=== PATIENT | female | born 1980 | race Caucasian/White ===

== ENCOUNTER → 2016-12-20 | Outpatient (CLI) | payer OTHER ==
[2016-12-20 16:54] LABS: ANION GAP 9 MEQ/L (8-16); BLOOD UREA NITROGEN 9 MG/DL (7-18); CALCIUM LEVEL 10.3 MG/DL (8.5-10.1); CARBON DIOXIDE LEVEL 26 MEQ/L (21-32); CHLORIDE LEVEL 106 MEQ/L (98-107); CREATININE FOR GFR 0.54 MG/DL (0.55-1.02); GLOMERULAR FILTRATION RATE > 60.0 (>60); GLUCOSE, FASTING 81 MG/DL (70-105); POTASSIUM SERUM 4.2 MEQ/L (3.5-5.1); SODIUM LEVEL 141 MEQ/L (136-145)
[2016-12-20 17:01] LABS: MEAN CORPUSCULAR HEMOGLOBIN 31.8 pg (27.0-33.0); MEAN CORPUSCULAR HGB CONC 35.2 g/dl (32.0-36.5); MEAN CORPUSCULAR VOLUME 90.4 fl (80.0-96.0); RED CELL DISTRIBUTION WIDTH 11.9 % (11.5-14.5)
[2016-12-24 00:06] LABS: O+P EXAM Final report (.)
== END ==
LOC: M LAB 16:10
PROVIDERS: ATTEND Student in an Organized Health Care Education/Training Program
DX: R53.83 Other fatigue (principal); Z79.899 Other long term (current) drug therapy; E66.3 Overweight; R10.84 Generalized abdominal pain

== ENCOUNTER → 2017-05-04 | Outpatient (CLI) | payer OTHER ==
[2017-05-04 15:26] LABS: PTH INTACT 131.4 PG/ML (14.0-72.0); TOTAL 25(OH) VITAMIN D 16.1 NG/ML (30.0-100.0)
[2017-05-04 15:59] LABS: ALBUMIN 4.4 GM/DL (3.2-5.2); ALBUMIN/GLOBULIN RATIO 1.52 (1.00-1.93); ALKALINE PHOSPHATASE 59 U/L (45-117); ALT/SGPT 21 U/L (12-78); ANION GAP 6 MEQ/L (8-16); AST/SGOT 17 U/L (7-37); BILIRUBIN,TOTAL 0.3 MG/DL (0.2-1.0); BLOOD UREA NITROGEN 10 MG/DL (7-18); CALCIUM LEVEL 10.2 MG/DL (8.5-10.1); CARBON DIOXIDE LEVEL 27 MEQ/L (21-32); CHLORIDE LEVEL 105 MEQ/L (98-107); CREATININE FOR GFR 0.61 MG/DL (0.55-1.30); GLOMERULAR FILTRATION RATE > 60.0 (>60); GLUCOSE, FASTING 94 MG/DL (70-100); POTASSIUM SERUM 4.4 MEQ/L (3.5-5.1); SODIUM LEVEL 138 MEQ/L (136-145); TOTAL PROTEIN 7.3 GM/DL (6.4-8.2)
[2017-05-09 14:16] LABS: VITAMIN D 1,25 DIHYDROXY 53.3 pg/mL (19.9-79.3)
== END ==
LOC: M LAB 14:06
DX: E55.9 Vitamin D deficiency, unspecified (principal)
CPT/HCPCS: 80053

== ENCOUNTER → 2017-05-11 | Outpatient (CLI) | payer OTHER | LOC: M RAD 13:20 | DX: E21.3 Hyperparathyroidism, unspecified (principal) | CPT/HCPCS: 76775 ==

== ENCOUNTER → 2017-05-19 | Outpatient (CLI) | payer OTHER | LOC: M RAD 09:36 | DX: E21.3 Hyperparathyroidism, unspecified (principal) | CPT/HCPCS: 78070 ==

== ENCOUNTER 2018-02-15 06:54 | Day surgery (SDC) | payer OTHER ==
[2018-02-15 07:19] LABS: CONTROL LINE UCG INT CTR LINE PRESENT; URINE PREG TEST NEGATIVE (NEGATIVE)
[2018-02-15] MEDS: LR 1,000 ML IV (08:20)
[2018-02-15] MEDS ORDERED: SCOPOLAMINE 1MG TRANSDERMAL PATCH As Ordered (10:19)
[2018-02-15] MEDS: SCOPOLAMINE 1MG TRANSDERMAL PATCH TOP (10:20)
[2018-02-15] MEDS ORDERED: MIDAZOLAM INJ 2 MG/2 ML VIAL (J2250) As Ordered (11:09)
[2018-02-15] MEDS ORDERED: fentaNYL 100 MCG/2 ML INJECTION (J3010) As Ordered ×2 (11:09→12:37)
[2018-02-15] MEDS ORDERED: PROPOFOL 200 MG/20 ML VIAL As Ordered ×2 (11:09→11:19)
[2018-02-15] MEDS ORDERED: ROCURONIUM BROMIDE 50 MG/5 ML VIAL As Ordered (11:09)
[2018-02-15] MEDS ORDERED: LIDOCAINE 2% INJ 100 MG/5 ML SDV (FOR ANES.) As Ordered (11:09)
[2018-02-15] MEDS ORDERED: SUCCINYLCHOLINE 100 MG/5 ML SYRINGE (J0330) As Ordered (11:10)
[2018-02-15] MEDS: CEFUROXIME INJ 750 MG VIAL (J0697 PER 750MG) As Ordered (11:14)
[2018-02-15] MEDS ORDERED: REMIFENTANIL 1MG 3ML VIAL As Ordered (11:16)
[2018-02-15] MEDS ORDERED: ePHEDrine SULFATE 25 MG/5 ML(5MG/ML) SYRINGE As Ordered (11:30)
[2018-02-15 11:43] LABS: PTH INTACT 176.6 PG/ML (18.5-88.0)
[2018-02-15] MEDS ORDERED: ONDANSETRON 4MG/2ML VIAL (J2405) As Ordered (12:28)
[2018-02-15 12:38] LABS: IONIZED CALCIUM 4.8 MG/DL (4.5-5.3)
[2018-02-15 13:06] LABS: PTH INTACT 31.6 PG/ML (18.5-88.0)
[2018-02-15] MEDS: LIDOCAINE W/EPINEPHRINE 1% 20ML VIAL As Ordered (13:10)
[2018-02-15 13:16] LABS: PTH INTACT 35.5 PG/ML (18.5-88.0)
[2018-02-15] MEDS ORDERED: NORCO, ANEXSIA 5/325MG TABLET (HYDROcodone/ACETAMINOPHEN) As Ordered (13:44)
[2018-02-15] MEDS: NORCO, ANEXSIA 5/325MG TABLET (HYDROcodone/ACETAMINOPHEN) PO ×2 (13:45→14:20)
[2018-02-15] MEDS ORDERED: fentaNYL 100 MCG/2 ML INJECTION (J3010) IV (14:15)
[2018-02-15] MEDS ORDERED: ONDANSETRON 4MG/2ML VIAL (J2405) IV (14:15)
[2018-02-15] MEDS ORDERED: LR 1,000 ML IV ×2 (14:15)
[2018-02-15] MEDS: dexameTHASONE 4 MG/ML 1ML VIAL (J1100) IV (14:20)
== END 2018-02-15 17:05 | disposition home or self-care (01) ==
LOC: M SDC 06:54
DX: D35.1 Benign neoplasm of parathyroid gland (principal); E21.3 Hyperparathyroidism, unspecified; J45.909 Unspecified asthma, uncomplicated; T88.59XD Other complications of anesthesia, subsequent encounter; K21.9 Gastro-esophageal reflux disease without esophagitis; M54.9 Dorsalgia, unspecified; Z88.1 Allergy status to other antibiotic agents; Z88.5 Allergy status to narcotic agent; Z88.8 Allergy status to other drugs, medicaments and biological substances
CPT/HCPCS: 60500

== ENCOUNTER → 2018-02-27 | Outpatient (CLI) | payer OTHER ==
[2018-02-27 13:53] LABS: IONIZED CALCIUM 4.8 MG/DL (4.5-5.3)
[2018-02-27 14:28] LABS: PTH INTACT 72.1 PG/ML (18.5-88.0)
== END ==
LOC: M LAB 13:29
DX: E21.0 Primary hyperparathyroidism (principal)
CPT/HCPCS: 82330

== ENCOUNTER → 2018-05-08 | Outpatient (CLI) | payer OTHER ==
[~2018-05-08] MED LIST: PROAAER10
--- NOTE | 2018-05-09 15:35 | DEXA ---
AP SPINE L1 - L4 1.073 -1.0 -1.0 LT FEMUR TOTAL 0.851 -1.2 -1.0 LT NECK 0.882 -1.1 -0.7 RT FEMUR TOTAL 0.891 -0.9 -0.7 RT NECK 0.899 -1.0 -0.6 TOTAL BODY TOTAL OTHER COMMENTS: There is low bone density of the spine and hips. FOLLOW-UP: Recommendation for the next bone density exam: 2 years. DAPHNEY
== END ==
LOC: M WHC 11:41
PROVIDERS: ATTEND Hospitalist
DX: E21.0 Primary hyperparathyroidism (principal); M85.851 Other specified disorders of bone density and structure, right thigh; M85.852 Other specified disorders of bone density and structure, left thigh; M85.88 Other specified disorders of bone density and structure, other site

== ENCOUNTER → 2018-09-14 | Outpatient (CLI) | payer OTHER ==
[2018-09-14 11:08] LABS: IONIZED CALCIUM 4.9 MG/DL (4.5-5.3)
[2018-09-14 11:37] LABS: PTH INTACT 68.8 PG/ML (18.5-88.0)
== END ==
LOC: M LAB 10:27
PROVIDERS: ATTEND Physician Assistant Medical
DX: D35.1 Benign neoplasm of parathyroid gland (principal)

== ENCOUNTER → 2020-04-09 | Outpatient (REF) | payer OTHER | LOC: M SFHCPLAZ 15:30 | DX: Z00.00 Encounter for general adult medical examination without abnormal findings (principal); E89.2 Postprocedural hypoparathyroidism; Z71.89 Other specified counseling ==

== ENCOUNTER → 2020-05-22 | Outpatient (REF) | payer OTHER | LOC: M SFHCPLAZ 16:53 | PROVIDERS: ATTEND Hospitalist | DX: D18.01 Hemangioma of skin and subcutaneous tissue (principal); D49.2 Neoplasm of unspecified behavior of bone, soft tissue, and skin ==

== ENCOUNTER → 2020-08-27 | Outpatient (REF) | payer OTHER | LOC: M SFHCWAGY 16:58 | PROVIDERS: ATTEND Advanced Practice Midwife | DX: Z12.4 Encounter for screening for malignant neoplasm of cervix (principal) ==

== ENCOUNTER → 2021-06-23 | Outpatient (REF) | payer OTHER | LOC: M SFHCPLAZ 11:37 | PROVIDERS: ATTEND Family Medicine | DX: Z00.00 Encounter for general adult medical examination without abnormal findings (principal); Z11.4 Encounter for screening for human immunodeficiency virus [HIV]; Z11.59 Encounter for screening for other viral diseases; Z13.1 Encounter for screening for diabetes mellitus; Z86.39 Personal history of other endocrine, nutritional and metabolic disease ==

== ENCOUNTER → 2021-06-23 | Outpatient (CLI) | payer OTHER ==
[2021-06-24 08:25] LABS: MEAN CORPUSCULAR HEMOGLOBIN 30.5 pg (27.0-33.0); MEAN CORPUSCULAR HGB CONC 33.3 g/dl (32.0-36.5); MEAN CORPUSCULAR VOLUME 91.5 fl (80.0-96.0); PLATELET COUNT, AUTOMATED 251 10^3/uL (150-450); RED BLOOD COUNT 4.59 10^6/uL (4.00-5.40); WHITE BLOOD COUNT 7.1 10^3/uL (4.0-10.0)
[2021-06-24 08:39] LABS: ALBUMIN 4.2 GM/DL (3.2-5.2); ALT/SGPT 18 U/L (12-78); BILIRUBIN,TOTAL 0.4 MG/DL (0.2-1.0); BLOOD UREA NITROGEN 8 MG/DL (7-18); CALCIUM LEVEL 9.4 MG/DL (8.5-10.1); CARBON DIOXIDE LEVEL 28 MEQ/L (21-32); CHLORIDE LEVEL 108 MEQ/L (98-107); CHOLESTEROL LEVEL 164 MG/DL (<200); CHOLESTEROL RISK RATIO 2.827 (<5); CREATININE FOR GFR 0.54 MG/DL (0.55-1.30); FREE T4 1.02 NG/DL (0.76-1.46); GLOMERULAR FILTRATION RATE > 60.0 (>58); GLUCOSE, FASTING 87 MG/DL (70-100); HDL CHOLESTEROL 58 MG/DL (>40); LDL CHOLESTEROL 92 MG/DL (<100); NON-HDL-C 106 MG/DL; POTASSIUM SERUM 4.5 MEQ/L (3.5-5.1); SODIUM LEVEL 139 MEQ/L (136-145); TOTAL PROTEIN 7.1 GM/DL (6.4-8.2); TRIGLYCERIDES LEVEL 71 MG/DL (<150)
[2021-06-24 09:53] LABS: HEPATITIS C VIRUS ABY INDEX 0.2 INDEX (<0.8)
[2021-06-24 09:54] LABS: HIV 1&2 SCREEN CENTAUR NEGATIVE (NEGATIVE)
== END ==
LOC: M PLALAB 14:16
PROVIDERS: ATTEND Student in an Organized Health Care Education/Training Program
DX: Z00.00 Encounter for general adult medical examination without abnormal findings (principal); Z11.4 Encounter for screening for human immunodeficiency virus [HIV]; Z11.59 Encounter for screening for other viral diseases; Z13.1 Encounter for screening for diabetes mellitus; Z86.39 Personal history of other endocrine, nutritional and metabolic disease

== ENCOUNTER → 2022-06-24 | Outpatient (CLI) | payer OTHER ==
[2022-06-24 16:42] LABS: BLOOD UREA NITROGEN 8 MG/DL (9-23); CARBON DIOXIDE LEVEL 27 MMOL/L (20-31); CHLORIDE LEVEL 106 MMOL/L (98-107); CREATININE FOR GFR 0.59 MG/DL (0.55-1.30); GLOMERULAR FILTRATION RATE > 60.0 (>58); GLUCOSE, FASTING 81 MG/DL (60-100); POTASSIUM SERUM 4.7 MMOL/L (3.5-5.1); SODIUM LEVEL 139 MMOL/L (136-145)
== END ==
LOC: M PLALAB 14:41
PROVIDERS: ATTEND Student in an Organized Health Care Education/Training Program
DX: Z86.39 Personal history of other endocrine, nutritional and metabolic disease (principal); Z13.1 Encounter for screening for diabetes mellitus

== ENCOUNTER → 2022-07-28 | Outpatient (CLI) | payer OTHER | LOC: M PLAIMG 14:13 | PROVIDERS: ATTEND Physician Assistant | DX: M54.50 Low back pain, unspecified (principal); M47.816 Spondylosis without myelopathy or radiculopathy, lumbar region; M47.817 Spondylosis without myelopathy or radiculopathy, lumbosacral region ==

== ENCOUNTER → 2023-06-28 | Outpatient (REF) | payer OTHER | LOC: M SFHCPLAZ 11:25 | PROVIDERS: ATTEND Family Medicine | DX: Z13.1 Encounter for screening for diabetes mellitus (principal); Z13.220 Encounter for screening for lipoid disorders; J45.40 Moderate persistent asthma, uncomplicated ==

== ENCOUNTER → 2023-10-12 | Outpatient (REF) | payer OTHER, SELFPAY ==
[2023-10-14 13:38] LABS: HPV APTIMA Not Detected (Not Detected)
== END ==
LOC: M SFHCWAGY 15:05
PROVIDERS: ATTEND Nurse Practitioner Family
DX: Z12.4 Encounter for screening for malignant neoplasm of cervix (principal)
CPT/HCPCS: 87624; G0123

== ENCOUNTER → 2024-02-06 | Outpatient (REF) | payer OTHER | LOC: M SFHCPLAZ 14:56 | PROVIDERS: ATTEND Family Medicine | DX: Z53.9 Procedure and treatment not carried out, unspecified reason (principal) ==

== ENCOUNTER → 2024-07-08 | Outpatient (REF) | payer OTHER | LOC: M SFHCPLAZ 16:01 | PROVIDERS: ATTEND Student in an Organized Health Care Education/Training Program | DX: Z00.00 Encounter for general adult medical examination without abnormal findings (principal); Z13.29 Encounter for screening for other suspected endocrine disorder; E21.0 Primary hyperparathyroidism; E55.9 Vitamin D deficiency, unspecified; Z13.21 Encounter for screening for nutritional disorder ==

== ENCOUNTER → 2024-12-04 | Outpatient (REF) | payer SELFPAY | LOC: M SFHCPLAZ 08:39 | PROVIDERS: ATTEND Student in an Organized Health Care Education/Training Program | DX: Z53.9 Procedure and treatment not carried out, unspecified reason (principal); J45.40 Moderate persistent asthma, uncomplicated; E21.0 Primary hyperparathyroidism; Z13.29 Encounter for screening for other suspected endocrine disorder; Z13.1 Encounter for screening for diabetes mellitus; Z90.49 Acquired absence of other specified parts of digestive tract; E55.9 Vitamin D deficiency, unspecified ==